=== PATIENT | female | born 1990 | race Two or more races ===

== ENCOUNTER 2019-07-08 09:12 | Outpatient (CLI) | payer OTHER | END 2019-07-08 10:35 | disposition home or self-care (01) | LOC: NST 09:12 | DX: Z34.83 Encounter for supervision of other normal pregnancy, third trimester (principal) ==

== ENCOUNTER 2019-09-03 09:33 | Inpatient (IN) | payer OTHER ==
[~2019-09-03] VITALS: Ht 165.1 cm; Wt 99.8 kg
[2019-09-12] MEDS ORDERED: OBSTETRIX DHA1 EACH PO (06:26)
== END 2019-09-14 13:22 | DRG 807 ==
LOC: OB/GYN 09:33 → LDR 09-12 05:48 → OB/GYN 09-12 18:06
PROVIDERS: ADMIT Obstetrics & Gynecology
PROC: 10E0XZZ Delivery of Products of Conception, External Approach (ICD-10-PCS; principal; 2019-09-12)
PROC: 0UQGXZZ Repair Vagina, External Approach (ICD-10-PCS; 2019-09-12)
PROC: 4A1HXCZ Monitoring of Products of Conception, Cardiac Rate, External Approach (ICD-10-PCS; 2019-09-12)
DX: O71.4 Obstetric high vaginal laceration alone (principal); Z37.0 Single live birth; Z3A.40 40 weeks gestation of pregnancy; Z22.330 Carrier of Group B streptococcus

== ENCOUNTER 2019-09-09 13:56 | Outpatient (CLI) | payer OTHER | END 2019-09-09 15:46 | disposition home or self-care (01) | LOC: NST 13:56 | DX: Z34.83 Encounter for supervision of other normal pregnancy, third trimester (principal) ==